=== PATIENT | female | born 1965 | race Caucasian/White ===

== ENCOUNTER 2018-10-15 07:02 | Emergency (ER) | payer BC ==
--- NOTE | 2018-10-15 07:26 | UC ---
Complaint Female HPI - HPI Summary HPI Summary: CHIEF COMPLAINT and HPI: This is a 53 yo female with a complaint of urinary frequency . This condition began yesterday . Since then she has a continuous urge to urinate . Pain is described as: none. No pain with urinary. Low back discomfort with sleeping but no new discomfort in the area of the kidneys. Patient denies fever. Previous hx of UTI many years ago. NURSES NOTE REVIEWED : VITAL SIGNS REVIEWED. Within normal limits unless noted. - History Of Current Complaint Stated Complaint: URINARY ISSUE Time Seen by Provider: 10/15/18 07:10 - Allergies/Home Medications Allergies/Adverse Reactions: Allergies Allergy/AdvReac Type Severity Reaction Status Date / Time No Known Allergies Allergy Verified 10/15/18 07:27 Home Medications: Home Medications Estradiol [Sharona] 1 each TD DAILY 10/15/18 [History Confirmed 10/15/18] Progesterone, Micronized [Progesterone] 200 mg PO DAILY 10/15/18 [History Confirmed 10/15/18] ValACYclovir (*) [Valtrex 500 mg (*)] 500 mg PO DAILY 10/15/18 [History Confirmed 10/15/18] PMH/Surg Hx/FS Hx/Imm Hx - Additional Past Medical History Additional PMH: PAST MEDICAL HISTORY is significantly positive for: NONE. Patient denies hospitalizations or surgeries. Chronic or recurrent medical problems include: noncontributory to current complaint. VISIT HISTORY REVIEWED. Visits relevant to current complaint: none. . MEDICATION AND ALLERGY REVIEW contributory to current complaint: none. Anti-hypertensive medication: None. FAMILY HISTORY is negative for: hypertension, cardiovascular disease, stroke, diabetes. SOCIAL HISTORY is significant for non-smoker, lives with , and works as a teacher. - Surgical History Surgical History: Yes Surgery Procedure, Year, and Place: VERICOSE VEIN REPAIR,T&A Review of Systems All Other Systems Reviewed And Are Negative: Yes Constitutional: Positive: Negative Respiratory: Positive: Negative. Negative: Shortness Of Breath Cardiovascular: Positive: Negative. Negative: Palpitations Gastrointestinal: Positive: Negative, Other - mild bladder tenderness with palpation. Negative: Abdominal Pain Genitourinary: Positive: Frequency - for 24 hours, Other - mild bladder tenderness Is Patient Immunocompromised?: No Physical Exam - Summary Physical Exam Summary: Appearance: The patient is well-appearing, is in no pain or distress, and is well-nourished. Eyes: Conjunctiva are clear. Pupils are equal and reactive to light and accommodation. Extra ocular muscle movement is intact. ENT: The hearing is grossly normal, the pharynx is normal, and the TMs are normal. There is no muffled or hoarse voice. No stridor. Neck: The neck is supple and there is no lymphadenopathy. Respiratory: The chest is nontender to palpation and without crepitus. The lungs are clear, there are normal breath sounds, and there is no respiratory distress. No wheezes, rales or rhonchi. Cardiovascular: Heart sounds reveal a regular rate and rhythm. There are no clicks, rubs or murmurs. There are no carotid bruits or thrills. Circulation is grossly intact. Abdomen: The abdomen is soft and nontender. There is no organomegaly. Bowel sounds are present and within normal limits. No point tenderness at McBurneys point. Slight discomfort to palpation over the bladder. Musculoskeletal: Strength is intact. The patient moves all extremities. Neurological: The patient is alert. Motor and sensory are examination grossly intact. Speech is normal. Psychological: The patient displays age appropriate behavior Skin: Crusting, vesicular rash, 6 cm along waist belt line left. Triage Information Reviewed: Yes Vital Signs Reviewed: Yes Complaint Female Dx - Course Course Of Treatment: CHIEF COMPLAINT and HPI: This is a 53 yo female with a complaint of urinary frequency . This condition began yesterday . Since then she has a continuous urge to urinate . Pain is described as: none. No pain with urinary. Low back discomfort with sleeping but no new discomfort in the area of the kidneys. Patient denies fever. Previous hx of UTI many years ago. NURSES NOTE REVIEWED : VITAL SIGNS REVIEWED. Within normal limits unless noted. PAST MEDICAL HISTORY is significantly positive for: NONE. Patient denies hospitalizations or surgeries. Chronic or recurrent medical problems include: noncontributory to current complaint. VISIT HISTORY REVIEWED. Visits relevant to current complaint: none. . MEDICATION AND ALLERGY REVIEW contributory to current complaint: none. Anti-hypertensive medication: None. FAMILY HISTORY is negative for: hypertension, cardiovascular disease, stroke, diabetes. SOCIAL HISTORY is significant for non-smoker, lives with , and works as a teacher. REVIEW OF SYSTEMS is significantly positive for frequency. Also, current rash dx'd as shingles and being treated. PHYSICAL EXAMINATION is significantly positive for: mild discomfort over the bladder with palpation. Skin: 6 cm vesicular rash, erythematous on belt line of the waist on the left. MEDICAL DECISION MAKING: (Differential Diagnosis; Tests; Final Diagnosis): This is a healthy 53-year-old female who comes to the [facility] with a complaint of a constant urge to urinate continuing over the last 24 hours. She denies dysuria and fever. Her urinalysis was positive for nitrite. The patient is currently diagnosed with shingles and is being treated for a period of 10 days. She has mild discomfort over the bladder with palpation. My differential would be ascending urinary tract infection versus cystitis. My diagnosis is cystitis. I will treat her with Macrobid. Follow up if any increased fever or pain. PLAN: Macrobid, bid, for 5 days. MEDICATIONS REVIEWED. HYPERTENSION STATUS REVIEWED WITH PATIENT. - Differential Dx/Diagnosis Differential Diagnosis/HQI/PQRI: Ureteral Stone, Urinary Tract Infection Provider Diagnosis: UTI (urinary tract infection) Discharge - Sign-Out/Discharge Documenting (check all that apply): Patient Departure All imaging exams completed and their final reports reviewed: Yes - Discharge Plan Condition: Stable Disposition: HOME Prescriptions: Nitrofurantoin Macrocrystals* [Macrodantin*] 100 mg PO BID 5 Days #10 cap MDD 2 Patient Education Materials: Urinary Tract Infection in Women (DC) Referrals: Susan Kelly MD [Primary Care Provider] - Additional Instructions: WE DISCUSSED: PLEASE SEEK CARE AT THE EMERGENCY DEPARTMENT IF SYMPTOMS WORSEN OR IF NEW SYMPTOMS DEVELOP. FOLLOW UP WITH YOUR PRIMARY CARE PHYSICIAN IF CONDITION CONTINUES BEYOND 3 DAYS WITHOUT IMPROVEMENT. We are open from 7 a.m. to 10 p.m. Call us with any questions or concerns. YOUR DIAGNOSIS IS: urinary bladder infection YOUR PRESCRIPTION RECOMMENDATION IS: Macrobid, twice a day for five days OTHER INSTRUCTIONS: see attached UTI instructions. - Billing Disposition and Condition Condition: STABLE Disposition: Home
[2018-10-15 07:34] VITALS: BP 118/73
== END 2018-10-15 07:50 | disposition home or self-care (01) ==
LOC: UCEAST 07:02
DX: N39.0 Urinary tract infection, site not specified (principal); Z87.440 Personal history of urinary (tract) infections; B02.9 Zoster without complications
CPT/HCPCS: 81003; 87086; 99212; G0463